=== PATIENT | female | born 1975 | race Hispanic/Latino ===

== ENCOUNTER → 2018-04-28 | Outpatient (CLI) | payer BC ==
[~2018-04-28] MED LIST: RANITIDINE HCL150 M1 PO; SINCALIDE 3 MCG/VIAL INJ ONE
--- NOTE | 2018-04-30 20:18 | Diagnostic Imaging Report ---
Hepatobiliary Scan with Gallbladder Ejection Fraction Clinical information: Cholelithiasis without obstruction Technique: Following intravenous administration of 6.7 millicuries of Tc-99m mebrofenin, dynamic images of the abdomen in the anterior projection were obtained through 60 minutes. Additional static image was obtained at 1.45 hours post injection of the radiotracer. Sincalide (CCK analog) 1.7 micrograms was administered intravenously over 30 minutes with additional imaging for determination of gallbladder ejection fraction. Discussion: Perfusion of the liver is normal. Extraction of tracer by the liver parenchyma is normal. Tracer appears promptly within the biliary tract. The gallbladder does not fill until 1.45 hours fill post injection of tracer and fills adequately. Tracer is seen in the small bowel by 14 minutes. There is no contractile response by the gallbladder to the pharmacologic dose of sincalide. No emptying of the gallbladder occurs during the 30 minute infusion. Impression: 1. Filling of the gallbladder excludes acute cystic duct obstruction/acute cholecystitis. 2. The gallbladder ejection fraction is undefined as there is no emptying of the gallbladder during the infusion of sincalide. This absence of a contractile response to sincalide supports the clinical diagnosis of chronic cholecystitis/gallbladder dyskinesia. Signed by: Dr. Gillian Tejada M.D. on 04/30/2018 8:15 PM
== END ==
LOC: NM 10:21
PROVIDERS: ATTEND Family Medicine
DX: K80.80 Other cholelithiasis without obstruction (principal)
CPT/HCPCS: 78227; 81025; A9537; J2805

== ENCOUNTER → 2018-05-10 | Day surgery (SDC) | payer BC ==
[2018-05-09 14:07] LABS: BASOPHILS % 0.4 % (0.0-1.0); EOSINOPHILS # (AUTO) 0.1 (0.0-0.4); EOSINOPHILS % 1.4 % (0.0-6.0); HEMATOCRIT 36.6 % (34.2-44.1); HEMOGLOBIN 11.6 g/dL (12.0-16.0); LYMPHOCYTES # (AUTO) 1.7 (1.0-3.2); LYMPHOCYTES % 34.1 % (18.0-39.1); MEAN CORPUSCULAR HEMOGLOBIN 25.5 pg (28-32); MEAN CORPUSCULAR HGB CONC 31.7 g/dL (31-35); MEAN CORPUSCULAR VOLUME 80.4 fL (81-99); MONOCYTES # (AUTO) 0.3 (0.2-0.8); MONOCYTES % 6.1 % (4.4-11.3); NEUTROPHILS # (AUTO) 2.9 (2.1-6.9); NEUTROPHILS % 57.6 % (38.7-80.0); PLATELET COUNT 238 x10e3/uL (140-360); RED BLOOD COUNT 4.55 x10e6/uL (3.6-5.1); RED CELL DISTRIBUTION WIDTH 13.7 % (11.7-14.4)
[2018-05-09 14:17] LABS: BILIRUBIN,URINE NEGATIVE (NEGATIVE); CLARITY,URINE SL CLOUDY (CLEAR); COLOR,URINE YELLOW (YELLOW); KETONES,URINE NEGATIVE (NEGATIVE); LEUKOCYTE ESTERASE ,URINE NEGATIVE (NEGATIVE); NITRITE,URINE NEGATIVE (NEGATIVE); PROTEIN,URINE DIPSTICK NEGATIVE (NEGATIVE); URINE UROBILINOGEN 0.2 mg/dL (0.2 - 1)
[2018-05-09 14:23] LABS: ALANINE AMINOTRANSFERASE 15 IU/L (0-55); ALBUMIN/GLOBULIN RATIO 1.2 (0.8-2.0); ALKALINE PHOSPHATASE 56 IU/L (40-150); ANION GAP 9.9 mmol/L (8-16); BLOOD UREA NITROGEN 13 mg/dL (7-26); BUN/CREATININE RATIO 15 (6-25); CALCIUM 9.2 mg/dL (8.4-10.2); CARBON DIOXIDE 28 mmol/L (22-29); CHLORIDE 104 mmol/L (98-107); CREATININE, SERUM 0.87 mg/dL (0.57-1.11); EST GLOMERULAR FILTRATION RATE > 60 ML/MIN (60-); GLUCOSE 108 mg/dL (74-118); POTASSIUM 3.9 mmol/L (3.5-5.1); SODIUM 138 mmol/L (136-145)
[~2018-05-10] MED LIST changes: +BUPIVACAINE 0.25%/EPI 30ML SDV INJ ONE; +CEFAZOLIN SOD 1 GM VIAL ONE; +DEXAMETHASONE SOD PHOS INJ 4 MG/ML VIAL ONE; +FENTANYL CITRATE/PF 100MCG/2 ML INJ ONE; +HYDROCODONE/APAP 7.5MG-325MG 1 EA TAB ONE; +HYDROMORPHONE 2MG/ML 2 MG/ML ML ONE; +LIDOCAINE HCL 2% LOCAL INJ 5 ML SDV VIAL INJ ONE; +MEPERIDINE HCL INJ 50 MG/ML INJ ONE; +MIDAZOLAM HCL 2 MG/2 ML VIAL ONE; +MORPHINE SULFATE 2 MG/ML SYR ONE; +ONDANSETRON HCL INJ 2 MG/ML VIAL ONE; +PROPOFOL IV EMULSION 10 MG/ML 20 ML VIAL ONE; +ROCURONIUM BROMIDE 10 MG/ML 5ML VIAL ONE; +SEVOFLURANE INHAL SOLN 250 ML PEN BTL ONE; -SINCALIDE 3 MCG/VIAL INJ ONE
--- OUTSIDE RECORDS SUMMARY | 2018-05-10 10:52 | XMS REPORT ---
Author Author [facility] Address Unknown Phone Unavailable Care Team Providers Care Coconut Cooker Name Role Phone KARON WALSH Unavailable Unavailable Problems This patient has no known problems. Allergies, Adverse Reactions, Alerts This patient has no known allergies or adverse reactions. Medications This patient has no known medications. Results Test Description Test Time Test Comments Text Results Atomic Results Result Comments HEPTOBILIARY W PHARM 2018-04-30 20:09:00 [place] [address] Patient Name: REJI ORTIZ MR #: [id number] : 1975 Age/Sex: 42/F Req #: [id number] [facility] Physician: Ordered by: KARON WALSH MD Report #: [id number] Location: IN Room/Bed: Procedure: [id number] NM/HEPTOBILIARY W PHARM Exam Date: 04/28/18 Exam Time: 1130 REPORT STATUS: Signed Hepatobiliary Scan with Gallbladder Ejection Fraction Clinical information: Cholelithiasis without obstruction Technique: Following intravenous administration of 6.7 millicuries of Tc-99m mebrofenin, dynamic images of the abdomen in the anterior projection were obtained through 60 minutes. Additional static image was obtained at 1.45 hours post injection of the radiotracer. Sincalide (CCK analog) 1.7 micrograms was administered intravenously over 30 minutes with additional imaging for determination of gallbladder ejection fraction. Discussion: Perfusion of the liver is normal. Extraction of tracer by the liver parenchyma is normal. Tracer appears promptly within the biliary tract. The gallbladder does not fill until 1.45 hours fill post injection of tracer and fills adequately. Tracer is seen in the small bowel by 14 minutes. There is no contractile response by the gallbladder to the pharmacologic dose of sincalide. No emptying of the gallbladder occurs during the 30 minute infusion. Impression: 1. Filling of the gallbladder excludes acute cystic duct obstruction/acute cholecystitis. 2. The gallbladder ejection fraction is undefined as there is no emptying of the gallbladder during the infusion of sincalide. This absence of a contractile response to sincalide supports the clinical diagnosis of chronic cholecystitis/gallbladder dyskinesia. Signed by: Dr. Kei Li M.D. on 04/30/2018 8:15 PM Dictated By: KEI LI MD 14 Transcribed By: AJ on 04/30/182014 COPY TO: KARON WALSH MD
[2018-05-10 15:10] VITALS: BP 102/61
--- NOTE | 2018-05-10 16:13 | Operative Report ---
DATE OF PROCEDURE: May 10, 2018 PREOPERATIVE DIAGNOSIS: Cholelithiasis, chronic cholecystitis. POSTOPERATIVE DIAGNOSIS: Cholelithiasis, chronic cholecystitis. PROCEDURE PERFORMED: Laparoscopic cholecystectomy. ANESTHESIA: General endotracheal. NETWORK STRATEGIST: WESTON Jernigan. ESTIMATED BLOOD LOSS: Minimal. DRAINS: None. COMPLICATIONS: None. INDICATIONS AND FINDINGS: The patient is a 42-year-old female admitted for cholecystectomy. She has 1-year history of upper abdominal pain associated with fatty food intolerance. Ultrasound revealed gallstone, no ductal dilatation. The gallbladder was somewhat contracted. Liver chemistries were normal. INTRAOPERATIVE FINDINGS: Were cholelithiasis with large stone that appeared to be an impaction of multiple ones. There were adhesions of the omentum as well as the stomach to the gallbladder from chronic inflammation. There was no ductal dilatation. DESCRIPTION OF PROCEDURE: With the patient lying on the operative table in the supine position after administration of general anesthesia, she was prepped and draped for laparoscopic cholecystectomy. The procedure was begun by establishing a pneumoperitoneum in the umbilical site after a stab wound was made in that location and the saline drop test was performed. The pneumoperitoneum was insufflated to 15 mm of pressure and then the 10-11 trocar placed in that location. The patient was rotated to the left and with the head up, and a 10 mm subxiphoid port was placed. Finally, 2 lateral working ports were placed in the right midclavicular line and right anterior axillary line. The gallbladder was retracted cephalad using grasping forceps, and the dissection was then begun, the omental adhesions and the stomach from the gallbladder. After we exposed the hepatoduodenal ligament, we extracted the gallbladder cephalad and inferolaterally with the 5 mm trocar graspers, and then we began the dissection high in the neck of the gallbladder. We lysed some adhesions. Finally, we identified the cystic duct, was not very long. The junction with the common bile duct was seen. Then the cystic duct was clipped distally 3 times, once proximally. The cystic artery was identified and transected between titanium clips also. Then the gallbladder was taken down from the liver bed using electrocautery dissection. The gallbladder was long, and the wall was thickened. After we did that, we placed the gallbladder in an endobag after we detached it and removed it through the umbilical port. We then reinsufflated the pneumoperitoneum, inspected the operative field, irrigated the gallbladder bed fossa, and some minor oozing was cauterized on the liver bed. We then inspected the operative field again, and after we ascertained there was no bile leak, no bleeding, no apparent bowel injury, we released the pneumoperitoneum under direct vision with the camera, closed the wounds using 0 Vicryl for the umbilical fascia. We had to place three 0 Vicryls because the incision had to be enlarged to extract the large stone, which was about 2 cm, perhaps slightly longer than that, and then we closed the subcutaneous tissue in the umbilical port as well as the subxiphoid port with 3-0 Vicryl, and the skin of all the ports was closed using hailee. Marcaine 0.25% with epinephrine was given as local block at the end of the case. The patient tolerated the procedure well, was taken to the recovery room in stable condition. Job#: [id number]
== END | disposition home or self-care (01) ==
LOC: OR 10:49
PROVIDERS: ATTEND Surgery
DX: K80.10 Calculus of gallbladder with chronic cholecystitis without obstruction (principal); K82.8 Other specified diseases of gallbladder; N39.0 Urinary tract infection, site not specified; Z01.810 Encounter for preprocedural cardiovascular examination; Z01.812 Encounter for preprocedural laboratory examination
CPT/HCPCS: 36415; 47562; 80053; 81003; 81025; 85025; 88304; 93005; C1766; J0690; J1100; J1170; J2001; J2175; J2250; J2270; J2405; J2704

== ENCOUNTER 2018-11-27 15:40 | Inpatient (IN) | payer BC ==
[~2018-11-27] VITALS: Ht 177.8 cm; Wt 90.3 kg
[~2018-11-27 15:40] MED LIST changes: -BUPIVACAINE 0.25%/EPI 30ML SDV INJ ONE; -CEFAZOLIN SOD 1 GM VIAL ONE; -DEXAMETHASONE SOD PHOS INJ 4 MG/ML VIAL ONE; -FENTANYL CITRATE/PF 100MCG/2 ML INJ ONE; -HYDROCODONE/APAP 7.5MG-325MG 1 EA TAB ONE; -HYDROMORPHONE 2MG/ML 2 MG/ML ML ONE; -LIDOCAINE HCL 2% LOCAL INJ 5 ML SDV VIAL INJ ONE; -MEPERIDINE HCL INJ 50 MG/ML INJ ONE; -MIDAZOLAM HCL 2 MG/2 ML VIAL ONE; -MORPHINE SULFATE 2 MG/ML SYR ONE; -ONDANSETRON HCL INJ 2 MG/ML VIAL ONE; -PROPOFOL IV EMULSION 10 MG/ML 20 ML VIAL ONE; -ROCURONIUM BROMIDE 10 MG/ML 5ML VIAL ONE; -SEVOFLURANE INHAL SOLN 250 ML PEN BTL ONE
[2018-11-27] MEDS ORDERED: KETOROLAC TROMETHAMINE 30 MG/ML VIAL IV ONE (17:48)
[2018-11-27] MEDS ORDERED: SODIUM CHLORIDE 0.9% 1000ML 1,000 ML IV STA (17:48)
[2018-11-27] MEDS ORDERED: ONDANSETRON HCL INJ 2MG/ML 2ML 2 MG/ML VIAL IV ONE (17:48)
[2018-11-27 18:05] LABS: BILIRUBIN,URINE NEGATIVE (NEGATIVE); CLARITY,URINE CLEAR (CLEAR); COLOR,URINE YELLOW (YELLOW); KETONES,URINE 2+ (NEGATIVE); LEUKOCYTE ESTERASE ,URINE NEGATIVE (NEGATIVE); NITRITE,URINE NEGATIVE (NEGATIVE); PROTEIN,URINE DIPSTICK NEGATIVE (NEGATIVE); URINE UROBILINOGEN 0.2 mg/dL (0.2 - 1)
[2018-11-27 18:08] LABS: BASOPHILS % 0.2 % (0.0-1.0); EOSINOPHILS % 0.1 % (0.0-6.0); HEMATOCRIT 37.5 % (34.2-44.1); LYMPHOCYTES # (AUTO) 1.3 (1.0-3.2); MEAN CORPUSCULAR HEMOGLOBIN 24.5 pg (28-32); MEAN CORPUSCULAR VOLUME 76.5 fL (81-99); MONOCYTES # (AUTO) 0.5 (0.2-0.8); MONOCYTES % 3.9 % (4.4-11.3); NEUTROPHILS # (AUTO) 11.2 (2.1-6.9); NEUTROPHILS % 85.3 % (38.7-80.0); PLATELET COUNT 295 x10e3/uL (140-360); RED CELL DISTRIBUTION WIDTH 15.2 % (11.7-14.4)
[2018-11-27 18:12] LABS: ALANINE AMINOTRANSFERASE 18 IU/L (0-55); ALBUMIN 4.3 g/dL (3.5-5.0); ALBUMIN/GLOBULIN RATIO 1.2 (0.8-2.0); ALKALINE PHOSPHATASE 69 IU/L (40-150); ANION GAP 16.6 mmol/L (8-16); BLOOD UREA NITROGEN 8 mg/dL (7-26); BUN/CREATININE RATIO 10 (6-25); CALCIUM 9.5 mg/dL (8.4-10.2); CARBON DIOXIDE 22 mmol/L (22-29); CHLORIDE 102 mmol/L (98-107); CREATININE, SERUM 0.77 mg/dL (0.57-1.11); EST GLOMERULAR FILTRATION RATE > 60 ML/MIN (60-); GLUCOSE 112 mg/dL (74-118); POTASSIUM 3.6 mmol/L (3.5-5.1); SODIUM 137 mmol/L (136-145)
[2018-11-27 18:13] LABS: AMYLASE 37 U/L (25-125); LIPASE 10 U/L (8-78)
[2018-11-27 18:14] LABS: WBC,URINE (MAN) 0-5 /HPF (0-5)
[2018-11-27 18:15] LABS: BACTERIA,URINE FEW /HPF; EPITHELIAL CELLS,URINE FEW /LPF
--- NOTE | 2018-11-27 18:40 | NUR ---
CT FIRST AID INSTRUCTOR ARRIVED TO ANIMAL ATTENDANTS AND TRAINERS PT FOR THE CT BUT PT HADN'T DRANK ANY OF THE WATER YET SO I MEDICATED HER FOR NAUSEA AND HE SAID HE WOULD COME BACK IN ABOUT 10 OR 15 MIN
--- NOTE | 2018-11-27 18:40 | NUR ---
PT C/O RLQ PAIN WITH N/V SINCE LAST NIGHT. FAMILY AT BEDSIDE.
--- NOTE | 2018-11-27 19:15 | NUR ---
PT FEELING MUCH BETTER NOW. SAYS PAIN IMPROVING. SHE WAS ABLE TO SMILE A LITTLE. SAYS PAIN DOWN FROM 10/10 TO 6/10 AND NAUSEA IS GONE NOW. CT TRANSPORT PICKING HER UP RIGHT NOW TO TAKE HER TO CT VIA STRETCHER
--- NOTE | 2018-11-27 19:30 | NUR ---
PT ARRIVED BACK FROM CT
--- NOTE | 2018-11-27 20:06 | Diagnostic Imaging Report ---
EXAMINATION: CT of the abdomen and pelvis with contrast. TECHNIQUE: Spiral CT images of the abdomen and pelvis were performed from the lung bases to the lesser trochanters after the intravenous administration of 100 cc of Isovue 370. Coronal and sagittal reformatted images were obtained. COMPARISON: None. CLINICAL HISTORY:Right upper quadrant epigastric pain since last night DISCUSSION: ABDOMEN/PELVIS: LOWER THORAX:Unremarkable. HEPATOBILIARY: No focal hepatic lesions. No intra or extrahepatic biliary ductal dilation. Cholecystectomy. SPLEEN: No splenomegaly. PANCREAS: No focal masses or ductal dilatation. ADRENALS: No adrenal nodules. KIDNEYS/URETERS: No hydronephrosis, stones, or solid mass lesions. PELVIC ORGANS/BLADDER: The bladder is normal. PERITONEUM/RETROPERITONEUM: No free air or fluid. LYMPH NODES: No intra-abdominal, retroperitoneal, pelvic or inguinal lymphadenopathy. VESSELS: The celiac trunk,superior and inferior mesenteric and bilateral renal arteries are patent The portal, superior mesenteric and splenic veins are patent. GI TRACT: Enlargement, hyperenhancement of the appendix measuring up to 13 mm in greatest dimension with extensive inflammatory stranding adjacent. No fluid collection or evidence of perforation. BONES AND SOFT TISSUE: No bony destructive lesions. No soft tissue abnormalities. IMPRESSION: Acute uncomplicated appendicitis. These findings were discussed with Brittany Vanegas by Dr. Judge via telephone at 2000 hours on 11/27/2018 Signed by: Calin Judge MD on 11/27/2018 8:02 PM
[2018-11-27] MEDS ORDERED: IOPAMIDOL 370 MG/ML 200 ML INFUS..BTL INJ ONE (20:09)
[2018-11-27] MEDS ORDERED: SODIUM CHLORIDE 0.9% 50ML 50 ML ONE (20:09)
[2018-11-27] MEDS ORDERED: ONDANSETRON HCL INJ 2MG/ML 2ML 2 MG/ML VIAL IV PRN (20:15)
[2018-11-27] MEDS ORDERED: MORPHINE SULFATE 2 MG/ML SYR 1ML IV PRN (20:15)
[2018-11-27] MEDS ORDERED: PROMETHAZINE HCL (IM) 25 MG/ML VIAL IV PRN (20:15)
[2018-11-27] MEDS ORDERED: MORPHINE SULFATE INJ 4 MG/ML INJ 1ML IV PRN (20:30)
[2018-11-27] MEDS ORDERED: PROMETHAZINE 12.5MG/ NACL 0.9% 50 ML IV PRN (20:30)
[2018-11-27] MEDS: CEFOXITIN 1GM/ D5W 50ML 50 ML IV SCH (21:40)
[2018-11-27] MEDS: SODIUM CHLORIDE 0.9% 1000ML 1,000 ML IV SCH (21:40)
[2018-11-27] MEDS ORDERED: SODIUM CHLORIDE 0.9% 1000ML 1,000 ML IV SCH (21:45)
[2018-11-27] MEDS ORDERED: CEFOXITIN IV SCH (22:00)
[2018-11-27] MEDS ORDERED: D5W IV SCH (22:00)
[2018-11-27] MEDS ORDERED: SODIUM CHLORIDE 0.9% 1000ML 1,000 ML IV ONE (22:30)
[2018-11-27 23:28] VITALS: BP 95/54
[2018-11-27 23:50] VITALS: BP 95/59
[2018-11-28] VITALS (7 sets, daily range): BP systolic 92–125; BP diastolic 53–71
--- NOTE | 2018-11-28 00:06 | NUR ---
PATIENT RECEIVED FROM EMERGENCY DEPARTMENT PER STRETCHER AT 2328; SHE'S ALERT AND ORIENTED X3, NO RESPIRATORY DISTRESS OBSERVED. SHE C/O ABDOMINAL TENDERNESS AND PAIN, BLOOD PRESSURE 95/54, HEART RATE 75. PATIENT IS ON A NPO STATUS, SPOKE WITH DR MILLS REGARDING PAIN MANAGEMENT AND THE LOW BLOOD PRESSURE, ORDER RECEIVED FOR IV TYLENOL EVERY 6HOURS NEEDED. WILL ADMINISTER THE MEDICATION ONCE THE ORDER HAS BEEN VERIFIED BY THE PHARMACIST.
[2018-11-28] MEDS ORDERED: ACETAMINOPHEN 1000 MG/100 ML IV PRN (00:15)
--- NOTE | 2018-11-28 03:29 | NUR ---
PATIENT IS ASLEEP, SHE'S EASY TO AROUSE. NO RESPIRATORY DISTRESS OBSERVED, SHE C/O MILD PAIN TO THE ABDOMEN. CALL LIGHT WITHIN EASY REACH, SHE'S INSTRUCTED TO CALL FOR ASSISTANCE NEEDED.
--- NOTE | 2018-11-28 04:33 | NUR ---
BLOOD PRESSURE REASSESSED WITH READING OF 80/47, HEART RATE 74. PATIENT DENIES DIZZINESS, SHE WAS ASSISTED TO THE RESTROOM AND SHE'S NOW BACK IN BED WITHOUT DISTRESS. IV FLUID INFUSING ORDERED, CALL LIGHT WITHIN EASY REACH, SHE'S INSTRUCTED TO CALL FOR ASSISTANCE UPON GETTING OUT OF THE BED.
[2018-11-28] MEDS: CEFOXITIN 1GM/ D5W 50ML 50 ML IV SCH ×4 (05:08→21:23)
[2018-11-28 05:29] LABS: BASOPHILS % 0.4 % (0.0-1.0); EOSINOPHILS % 0.2 % (0.0-6.0); HEMATOCRIT 28.5 % (34.2-44.1); LYMPHOCYTES # (AUTO) 2.1 (1.0-3.2); LYMPHOCYTES % 25.3 % (18.0-39.1); MEAN CORPUSCULAR HEMOGLOBIN 24.2 pg (28-32); MEAN CORPUSCULAR HGB CONC 30.5 g/dL (31-35); MEAN CORPUSCULAR VOLUME 79.4 fL (81-99); MONOCYTES # (AUTO) 0.6 (0.2-0.8); MONOCYTES % 6.6 % (4.4-11.3); NEUTROPHILS # (AUTO) 5.7 (2.1-6.9); NEUTROPHILS % 67.1 % (38.7-80.0); PLATELET COUNT 227 x10e3/uL (140-360); RED BLOOD COUNT 3.59 x10e6/uL (3.6-5.1); RED CELL DISTRIBUTION WIDTH 15.1 % (11.7-14.4)
[2018-11-28 05:40] LABS: HEMOGLOBIN 8.7 g/dL (12.0-16.0)
[2018-11-28 05:44] LABS: ALANINE AMINOTRANSFERASE 12 IU/L (0-55); ALBUMIN 2.9 g/dL (3.5-5.0); ALBUMIN/GLOBULIN RATIO 1.2 (0.8-2.0); ALKALINE PHOSPHATASE 49 IU/L (40-150); ANION GAP 9.3 mmol/L (8-16); BLOOD UREA NITROGEN 6 mg/dL (7-26); BUN/CREATININE RATIO 9 (6-25); CALCIUM 8.1 mg/dL (8.4-10.2); CARBON DIOXIDE 21 mmol/L (22-29); CHLORIDE 109 mmol/L (98-107); CREATININE, SERUM 0.64 mg/dL (0.57-1.11); EST GLOMERULAR FILTRATION RATE > 60 ML/MIN (60-); GLUCOSE 104 mg/dL (74-118); POTASSIUM 3.3 mmol/L (3.5-5.1); SODIUM 136 mmol/L (136-145)
[2018-11-28 06:42] LABS: HEMATOCRIT 29.7 % (34.2-44.1); HEMOGLOBIN 9.4 g/dL (12.0-16.0)
--- NOTE | 2018-11-28 06:45 | NUR ---
walking rounds made with power and recovery shift engineer nurse, patient aware of change and in no distress with at bedside. call bustamante within reach and bed in lowest position.
--- NOTE | 2018-11-28 11:05 | NUR ---
patient leaving unit to OR, alert and oriented with at bedside.
[2018-11-28] MEDS ORDERED: BUPIVACAINE 0.25%/EPI 30ML SDV INJ ONE (11:41)
[2018-11-28] MEDS: SODIUM CHLORIDE 0.9% 1000ML 1,000 ML IV SCH ×3 (12:09→21:22)
[2018-11-28] MEDS ORDERED: FENTANYL CITRATE/PF 100MCG/2 ML INJ ONE ×2 (13:10→19:31)
--- NOTE | 2018-11-28 13:21 | Operative Report ---
DATE OF PROCEDURE: 11/28/2018 SURGEON: Jonnathan Mckeon MD PREOPERATIVE DIAGNOSIS: Acute appendicitis. POSTOPERATIVE DIAGNOSIS: Acute suppurative appendicitis. OPERATION PERFORMED: Laparoscopic appendectomy. MEDICAL ENGINEER: WESTON Aguero. ANESTHESIA: General. COMPLICATIONS: None. ESTIMATED BLOOD LOSS: Minimal. PROCEDURE IN DETAIL: With the patient lying in bed in supine position under good general endotracheal anesthesia, the abdomen was prepped with Betadine solution and draped in the usual manner. A Veress needle was introduced into the umbilicus and pneumoperitoneum was established without any difficulty. A 12 mm trocar was placed into the umbilicus and a 10 mm video laparoscope was placed into the intra-abdominal cavity. Under direct vision, a 5 mm trocar was placed in the suprapubic region and another 5 mm trocar was placed in the left lower quadrant. Video laparoscopy at this point revealed an acutely inflamed suppurative appendicitis. There was no definite abscess present. There was a lot of fibrinous, purulent materials surrounding the appendix, which was partially retrocecal and stuck to the ascending colon. The rest of the abdominal exploration appeared to be within normal limits except for a few adhesions in the upper abdomen from her previous cholecystectomy. The appendix was then mobilized off the retroperitoneum and . The base of the appendix was then circumferentially dissected and divided with an application of the Endo-BO stapler. The mesentery of the appendix was then divided with an application of the Endo-BO vascular stapler. The appendix was placed in a pouch and removed through the umbilicus without any difficulty. Video laparoscopy was then again carried out. The staple lines were checked. There was no bleeding. The whole area was then thoroughly irrigated. All of the excess fluid was aspirated. The pneumoperitoneum was evacuated and all the trocars were removed under direct vision. The midline fascia at the umbilicus was then closed with a [id number] of 0 Vicryl. All layers were infiltrated on the way out with solution of 0.25% Marcaine. Subcutaneous tissue was approximated with 3-0 Vicryl and the skin was closed with subcuticular 5-0 Vicryl. Benzoin, Steri-Strips, and Band-Aids were applied. The sponge, lap, and needle count was correct. The patient tolerated the procedure well and returned to the recovery room in stable condition. MD AFSANEH Nevarez/ALEC /[id number]
--- NOTE | 2018-11-28 13:31 | NUR ---
patient returned to unit via stretcher, alert and oriented. in no distress. call bustamante within reach, bed in lowest position and at bedside.
[2018-11-28] MEDS: HYDROCODONE/APAP 7.5MG-325MG 1 EA TAB PO PRN ×3 (15:40→23:48)
--- NOTE | 2018-11-28 19:00 | NUR ---
rounded with night shift supervisor nurse patient aware of change and in no distress, call bustamante within reach and bed in lowest position with at bedside.
--- NOTE | 2018-11-28 19:00 | NUR ---
Report and walking rounds completed. Patient resting in bed with spouse at bedside. No issues or concerns. Call light within reach. Will continue to monitor.
[2018-11-28] MEDS ORDERED: MIDAZOLAM HCL 2 MG/2 ML VIAL ONE (19:31)
--- NOTE | 2018-11-28 20:13 | NUR ---
Report called to nurse on med/surg 1 for room 104. Patient updated about room transfer and personal items collected and transferred with patient. A&O x3, no issues or concerns.
--- NOTE | 2018-11-28 20:30 | NUR ---
The patient arrived from the OBS unit via wheelchair. The patient reported mild to moderate pain to the lower abdomen. Bed is set low, wheels lock, angle of bed at 45 degrees, call light within reach, and side rails up x2. Monitor the patient for pain.
[2018-11-28] MEDS ORDERED: PROPOFOL IV EMULSION 10 MG/ML 20 ML VIAL ONE (21:42)
[2018-11-28] MEDS ORDERED: ROCURONIUM BROMIDE 10 MG/ML 5ML VIAL ONE (21:42)
[2018-11-28] MEDS ORDERED: LIDOCAINE HCL 2% LOCAL INJ 5 ML SDV VIAL INJ ONE (21:42)
[2018-11-28] MEDS ORDERED: DEXAMETHASONE SOD PHOS INJ 4 MG/ML VIAL ONE (21:42)
[2018-11-28] MEDS ORDERED: KETOROLAC TROMETHAMINE 30 MG/ML VIAL ONE (21:42)
[2018-11-28] MEDS ORDERED: ONDANSETRON HCL INJ 2MG/ML 2ML 2 MG/ML VIAL ONE (21:42)
[2018-11-29] VITALS: BP 106/58
[2018-11-29 04:00] VITALS: BP 105/59
[2018-11-29] MEDS: SODIUM CHLORIDE 0.9% 1000ML 1,000 ML IV SCH ×2 (05:07→12:42)
[2018-11-29] MEDS: CEFOXITIN 1GM/ D5W 50ML 50 ML IV SCH ×2 (05:07→14:00)
--- NOTE | 2018-11-29 05:23 | NUR ---
The patient just had a BM and is passing gas. The patient was notified the MD will possibly advance the diet as tolerated. Verbalized understanding.
[2018-11-29 06:36] LABS: BASOPHILS % 0.1 % (0.0-1.0); EOSINOPHILS % 0.1 % (0.0-6.0); HEMATOCRIT 29.6 % (34.2-44.1); HEMOGLOBIN 9.3 g/dL (12.0-16.0); LYMPHOCYTES # (AUTO) 2.1 (1.0-3.2); LYMPHOCYTES % 22.8 % (18.0-39.1); MEAN CORPUSCULAR HEMOGLOBIN 24.3 pg (28-32); MEAN CORPUSCULAR HGB CONC 31.4 g/dL (31-35); MEAN CORPUSCULAR VOLUME 77.3 fL (81-99); MONOCYTES # (AUTO) 0.5 (0.2-0.8); MONOCYTES % 5.2 % (4.4-11.3); NEUTROPHILS # (AUTO) 6.5 (2.1-6.9); NEUTROPHILS % 71.5 % (38.7-80.0); PLATELET COUNT 243 x10e3/uL (140-360); RED BLOOD COUNT 3.83 x10e6/uL (3.6-5.1); RED CELL DISTRIBUTION WIDTH 15.5 % (11.7-14.4)
[2018-11-29 06:55] LABS: ANION GAP 11.3 mmol/L (8-16); BLOOD UREA NITROGEN 5 mg/dL (7-26); BUN/CREATININE RATIO 7 (6-25); CALCIUM 7.8 mg/dL (8.4-10.2); CARBON DIOXIDE 21 mmol/L (22-29); CHLORIDE 110 mmol/L (98-107); CREATININE, SERUM 0.69 mg/dL (0.57-1.11); EST GLOMERULAR FILTRATION RATE > 60 ML/MIN (60-); GLUCOSE 108 mg/dL (74-118); POTASSIUM 3.3 mmol/L (3.5-5.1); SODIUM 139 mmol/L (136-145)
--- NOTE | 2018-11-29 07:35 | NUR ---
RECEIVED PATIENT RESTING IN BED NO SIGNS OF DISTRESS AT THIS TIME. BED LOW, WHEELS LOCKED, SIDE RAILS X2. CALL LIGHT IN REACH WILL CONTINUE TO MONITOR PATIENT.
[2018-11-29] MEDS: HYDROCODONE/APAP 7.5MG-325MG 1 EA TAB PO PRN (08:34)
[2018-11-29] MEDS ORDERED: POTASSIUM CHLORIDE 20 MEQ TAB CR PO STA (09:10)
[2018-11-29 09:44] VITALS: BP 99/67
[2018-11-29 10:03] VITALS: BP 99/67
[2018-11-29] MEDS ORDERED: ONDANSETRON HCL 4 MG ORAL DISINTEGRATING TAB PO PRN (11:15)
[2018-11-29 12:49] VITALS: BP 119/58
[2018-11-29] MEDS ORDERED: POTASSIUM CHLORIDE 20 MEQ TAB CR PO ONE (13:30)
[2018-11-29] MEDS ORDERED: LEVAQUIN500 MG PO (14:06)
[2018-11-29] MEDS ORDERED: TYLENOL # 31 EA PO (14:06)
--- NOTE | 2018-11-29 14:15 | NUR ---
REMOVED PATIENTS IV. CATHETER TIP INTACT AND PRESSURE DRESSING APPLIED.
--- NOTE | 2018-11-29 14:33 | NUR ---
PATIENT DISCHARGED FROM FACILITY. PATIENT GATHERED ALL PERSONAL BELONGINGS, DISCHARGE INSTRUCTIONS, AND FOLLOW UP INFORMATION. LEFT UNIT IN WHEELCHAIR AND WENT HOME VIA PRIVATE AUTO. NO SIGNS OF DISTRESS WHEN LEAVING FACILITY.
== END 2018-11-29 14:34 | disposition home or self-care (01) | DRG 343 ==
LOC: ER 15:40 → ERHOLD 20:22 → IMCU 23:43 → OBSVTOIN 11-28 13:52 → MED/SURG 11-28 20:20
PROVIDERS: ADMIT Surgery; ATTEND Surgery
PROC: 0DTJ4ZZ Resection of Appendix, Percutaneous Endoscopic Approach (ICD-10-PCS; principal; 2018-11-28 11:30)
DX: K35.30 Acute appendicitis with localized peritonitis, without perforation or gangrene (principal); Z90.49 Acquired absence of other specified parts of digestive tract
CPT/HCPCS: 36415; 74177; 80048; 80053; 81001; 82150; 83690; 84702; 85014; 85018; 85025; 88304; 96367; 99284; G0378; J1100; J1885; J2001; J2250; J2270; J2405; J7030; Q9967